=== PATIENT | female | born 1975 | race Caucasian/White ===

== ENCOUNTER → 2017-01-08 | Outpatient (REF) ==
[2017-01-08 17:25] LABS: THYROID STIMULATING HORMONE 1.82 uIU/mL (0.465-4.680)
[2017-01-08 18:58] LABS: CHLAMYDIA/TRACH by PCR Female NOT DETECTED; NEISSERIA GON by PCR Female NOT DETECTED
== END ==
LOC: ZLAB.WCH 15:37
PROVIDERS: Physician Assistant
DX: Z01.89 Encounter for other specified special examinations (principal)